=== PATIENT | male | born 1995 | race African-American/Black ===

== ENCOUNTER 2018-06-20 07:27 | Emergency (ER) | payer MEDICAID ==
[~2018-06-20] VITALS: Ht 177.8 cm; Wt 82.0 kg
[2018-06-20] MEDS ORDERED: MORPHINE SULFATE 4 MG/ML CPJ (NOT FOR IM USE) IV ONE (08:15)
[2018-06-20] MEDS ORDERED: DIPHENHYDRAMINE 50MG/ML VIAL IV ONE (08:15)
[2018-06-20] MEDS ORDERED: SODIUM CHLORIDE 0.9% 1,000 ML IV ONE (08:15)
[2018-06-20] MEDS ORDERED: METOCLOPRAMIDE HCL 10MG/2ML VIAL IV ONE (08:15)
[2018-06-20] MEDS ORDERED: MORPHINE SULFATE 10 MG/ML CPJ IV NR (08:21)
[2018-06-20] MEDS ORDERED: KETOROLAC 30MG/ML VIAL IV ONE (10:45)
[2018-06-20] MEDS ORDERED: ONDANSETRON HCL 4MG/2ML INJ IV ONE (10:45)
[2018-06-20 11:34] VITALS: BP 135/86
== END 2018-06-20 11:39 | disposition home or self-care (01) ==
LOC: ER 07:27
DX: R51 Headache (principal); R42 Dizziness and giddiness; F12.10 Cannabis abuse, uncomplicated; R11.10 Vomiting, unspecified
CPT/HCPCS: 70450; 96361; 96374; 96375; 99284; J1200; J1885; J2270; J2405; J2765; J7030